=== PATIENT | male | born 1945 | race Hispanic/Latino ===

== ENCOUNTER 2021-08-23 11:32 | Inpatient (IN) | payer MEDICARE, OTHER ==
[~2021-08-23] VITALS: Ht 167.6 cm; Wt 65.9 kg
[2021-08-23 11:59] LABS: APPEARANCE,URINE TURBID (CLEAR); BILIRUBIN,URINE SMALL (NEGATIVE); COLOR,URINE AMBER (YELLOW); GLUCOSE, URINE (UA) NEGATIVE (NEGATIVE); KETONES,URINE 5 mg/dL (NEGATIVE); LEUKOCYTE ESTERASE ,URINE SMALL (NEGATIVE); NITRATE,URINE POSITIVE (NEGATIVE); OCCULT BLOOD,URINE LARGE (NEGATIVE); PH,URINE 5.5 (5.0-8.0); PROTEIN,URINE 100 mg/dL (NEGATIVE)
[2021-08-23 12:08] LABS: RBC,URINE TNTC /HPF (0-1)
[2021-08-23 12:09] LABS: BACTERIA,URINE Moderate /HPF (None Seen); SQUAMOUS EPITHELIAL CELL,UR Few /HPF (0-2)
[2021-08-23] MEDS ORDERED: 0.9%NACL 1000ML 1,137 ML IV ONE (12:30)
[2021-08-23 12:49] LABS: BASOPHILS % (AUTO) 0.4 % (0.0-5.0); EOSINOPHILS % (AUTO) 0.4 % (0.0-8.0); HEMATOCRIT 29.3 % (42-54); LYMPHOCYTES % (AUTO) 11.5 % (21.0-51.0); MEAN CORPUSCULAR HEMOGLOBIN 29.3 pg (27.0-33.0); MEAN CORPUSCULAR HGB CONC 33.4 g/dL (32.0-36.0); MEAN CORPUSCULAR VOLUME 87.5 fL (79-99); MONOCYTES % (AUTO) 7.2 % (3.0-13.0); NEUTROPHILS % (AUTO) 79.8 % (40.0-77.0); PLATELET COUNT (AUTO) 177 K/uL (130-400); RED BLOOD CELL COUNT(AUTO) 3.35 MIL/uL (4.50-6.20); RED CELL DISTRIBUTION WIDTH 14.1 % (11.0-15.5); WHITE BLOOD COUNT (AUTO) 22.5 K/uL (4.8-10.8)
[2021-08-23 12:58] LABS: CREATININE 0.9 mg/dL (0.5-1.5); POTASSIUM 3.9 mmol/L (3.5-5.1)
[2021-08-23] MEDS ORDERED: ZOSYN 3.375GM +NS 50ML IV SCH (13:00)
[2021-08-23] MEDS ORDERED: ZOSYN 3.375GM+NS 50ML 3.38 GM in 0.9%NACL 50ML 50 ML IV SCH ×2 (13:00→15:30)
[2021-08-23 13:09] LABS: ALBUMIN 2.8 g/dL (3.5-5.0); BILIRUBIN,TOTAL 0.5 mg/dL (0.2-1.0); TOTAL PROTEIN, SERUM 6.6 g/dL (6.0-8.3)
[2021-08-23] MEDS ORDERED: ACETAMINOPHEN 325 MG TAB PO PRN ×2 (14:00)
[2021-08-23] MEDS ORDERED: ONDANSETRON 4MG INJ IV PRN (14:00)
[2021-08-23] MEDS ORDERED: CEFTRIAXONE 1G VIAL IV SCH (14:00)
[2021-08-23] MEDS ORDERED: LACTULOSE 20 GM/30 ML UDCUP PO PRN (14:00)
[2021-08-23] MEDS ORDERED: NITROGLYCERIN 0.4 MG SL TAB SL PRN (14:00)
[2021-08-23 14:50] LABS: ABG OXYGEN SATURATION 96.1 % (95.0-99.0); ABG PCO2 37 mmHg (35-48)
[2021-08-23] MEDS: LACTATED RINGERS 1000ML 1,000 ML IV SCH (15:00)
[2021-08-23] MEDS ORDERED: 0.9%NACL 50ML 50 ML IV ONE (15:48)
[2021-08-23] MEDS: ZOSYN 3.375GM +NS 50ML IV SCH ×2 (17:11→21:29)
[2021-08-23] MEDS: FAMOTIDINE 20MG TAB PO SCH (20:59)
[2021-08-23] MEDS ORDERED: LORAZEPAM 2 MG/ML 1 ML VIAL IVP ONE (23:00)
[2021-08-23] MEDS ORDERED: LORAZEPAM 2 MG/ML 1 ML VIAL ONE (23:02)
[2021-08-24] MEDS ORDERED: DONE5TAB33 PO (00:14)
[2021-08-24] MEDS ORDERED: TAMS-1 PO (00:14)
[2021-08-24] MEDS ORDERED: ACET500C4 PO (00:14)
[2021-08-24] MEDS ORDERED: MEMA10TA55 PO (00:14)
[2021-08-24] MEDS ORDERED: SERT-439 PO (00:14)
[2021-08-24] MEDS ORDERED: QUET25TA36 PO (00:14)
[2021-08-24] MEDS ORDERED: ROSU5TAB12 PO (00:14)
[2021-08-24] MEDS ORDERED: LOSA50TA64 PO (00:14)
[2021-08-24] MEDS ORDERED: CARB1TAB20 PO (00:14)
[2021-08-24] MEDS: LACTATED RINGERS 1000ML 1,000 ML IV SCH ×3 (00:21→21:12)
[2021-08-24] MEDS: ZOSYN 3.375GM +NS 50ML IV SCH ×3 (05:51→21:12)
[2021-08-24] MEDS: FAMOTIDINE 20MG TAB PO SCH ×2 (08:45→21:00)
[2021-08-24 10:49] LABS: BASOPHILS % (AUTO) 0.6 % (0.0-5.0); EOSINOPHILS % (AUTO) 2.1 % (0.0-8.0); HEMATOCRIT 28.4 % (42-54); LYMPHOCYTES % (AUTO) 10.1 % (21.0-51.0); MEAN CORPUSCULAR HEMOGLOBIN 29.3 pg (27.0-33.0); MEAN CORPUSCULAR HGB CONC 33.5 g/dL (32.0-36.0); MEAN CORPUSCULAR VOLUME 87.7 fL (79-99); MONOCYTES % (AUTO) 7.8 % (3.0-13.0); NEUTROPHILS % (AUTO) 78.9 % (40.0-77.0); PLATELET COUNT (AUTO) 177 K/uL (130-400); RED BLOOD CELL COUNT(AUTO) 3.24 MIL/uL (4.50-6.20); WHITE BLOOD COUNT (AUTO) 15.5 K/uL (4.8-10.8)
[2021-08-24 10:58] LABS: CREATININE 0.7 mg/dL (0.5-1.5); POTASSIUM 3.6 mmol/L (3.5-5.1)
[2021-08-24 11:02] LABS: ALBUMIN 2.7 g/dL (3.5-5.0); BILIRUBIN,TOTAL 0.5 mg/dL (0.2-1.0); TOTAL PROTEIN, SERUM 6.6 g/dL (6.0-8.3)
[2021-08-24] MEDS ORDERED: 0.9%NACL 50ML 50 ML IV ONE (12:37)
[2021-08-24] MEDS ORDERED: LACTULOSE 20 GM/30 ML UDCUP PR SCH (16:30)
[2021-08-24] MEDS ORDERED: LORAZEPAM 2 MG/ML 1 ML VIAL ONE (17:48)
[2021-08-24] MEDS ORDERED: LORAZEPAM 2 MG/ML 1 ML VIAL IVP PRN (19:00)
[2021-08-24] MEDS: LUBIPROSTONE 24 MCG CAP PO SCH (21:50)
[2021-08-25] MEDS: ZOSYN 3.375GM +NS 50ML IV SCH ×3 (05:50→19:23)
[2021-08-25] MEDS: LACTATED RINGERS 1000ML 1,000 ML IV SCH ×2 (06:09→16:00)
[2021-08-25 07:09] LABS: HEMATOCRIT 30.4 % (42-54); MEAN CORPUSCULAR HEMOGLOBIN 28.7 pg (27.0-33.0); MEAN CORPUSCULAR VOLUME 87.1 fL (79-99); RED BLOOD CELL COUNT(AUTO) 3.49 MIL/uL (4.50-6.20); WHITE BLOOD COUNT (AUTO) 12.1 K/uL (4.8-10.8)
[2021-08-25 07:10] LABS: BASOPHILS % (AUTO) 0.6 % (0.0-5.0); EOSINOPHILS % (AUTO) 4.4 % (0.0-8.0); LYMPHOCYTES % (AUTO) 15.7 % (21.0-51.0); MEAN CORPUSCULAR HGB CONC 32.9 g/dL (32.0-36.0); MONOCYTES % (AUTO) 8.5 % (3.0-13.0); NEUTROPHILS % (AUTO) 70.5 % (40.0-77.0); PLATELET COUNT (AUTO) 198 K/uL (130-400); RED CELL DISTRIBUTION WIDTH 13.9 % (11.0-15.5)
[2021-08-25 07:25] LABS: ALBUMIN 2.8 g/dL (3.5-5.0); BILIRUBIN,TOTAL 0.6 mg/dL (0.2-1.0); CREATININE 0.7 mg/dL (0.5-1.5); POTASSIUM 3.5 mmol/L (3.5-5.1); TOTAL PROTEIN, SERUM 6.9 g/dL (6.0-8.3)
[2021-08-25] MEDS: LUBIPROSTONE 24 MCG CAP PO SCH ×2 (08:00→18:14)
[2021-08-25] MEDS: FAMOTIDINE 20MG TAB PO SCH ×2 (10:33→19:25)
[2021-08-25 16:15] VITALS: BP 160/62
[2021-08-25 20:00] VITALS: BP 146/45
[2021-08-26] VITALS: BP 146/50
[2021-08-26 04:00] VITALS: BP 157/80
[2021-08-26] MEDS: ZOSYN 3.375GM +NS 50ML IV SCH ×2 (05:00→13:02)
[2021-08-26 05:06] LABS: BASOPHILS % (AUTO) 0.8 % (0.0-5.0); EOSINOPHILS % (AUTO) 4.7 % (0.0-8.0); HEMATOCRIT 31.9 % (42-54); LYMPHOCYTES % (AUTO) 17.4 % (21.0-51.0); MEAN CORPUSCULAR HGB CONC 32.3 g/dL (32.0-36.0); MEAN CORPUSCULAR VOLUME 86.7 fL (79-99); MONOCYTES % (AUTO) 9.1 % (3.0-13.0); NEUTROPHILS % (AUTO) 67.6 % (40.0-77.0); PLATELET COUNT (AUTO) 236 K/uL (130-400); RED BLOOD CELL COUNT(AUTO) 3.68 MIL/uL (4.50-6.20); RED CELL DISTRIBUTION WIDTH 13.6 % (11.0-15.5); WHITE BLOOD COUNT (AUTO) 9.7 K/uL (4.8-10.8)
[2021-08-26 05:25] LABS: ALBUMIN 2.8 g/dL (3.5-5.0); BILIRUBIN,TOTAL 0.6 mg/dL (0.2-1.0); CREATININE 0.7 mg/dL (0.5-1.5); POTASSIUM 3.4 mmol/L (3.5-5.1); TOTAL PROTEIN, SERUM 7.2 g/dL (6.0-8.3)
[2021-08-26] MEDS: LUBIPROSTONE 24 MCG CAP PO SCH (08:00)
[2021-08-26 08:02] VITALS: BP 156/77
[2021-08-26] MEDS ORDERED: TAMSULOSIN HCL 0.4 MG CAP.ER.24H PO SCH (09:00)
[2021-08-26] MEDS: FAMOTIDINE 20MG TAB PO SCH (09:00)
[2021-08-26 11:50] VITALS: BP 160/71
[2021-08-26 16:29] VITALS: BP 185/74
== END 2021-08-26 19:00 | disposition hospice, home (50) | DRG 698 ==
LOC: EDH 11:32 → EDHIP 13:49 → 3BH 08-25 14:02 → UNDODISIN 08-26 19:00
PROVIDERS: ADMIT Internal Medicine; ATTEND Internal Medicine
DX: T83.518A Infection and inflammatory reaction due to other urinary catheter, initial encounter (principal); A41.9 Sepsis, unspecified organism; G92.9 Unspecified toxic encephalopathy; J69.0 Pneumonitis due to inhalation of food and vomit; N39.0 Urinary tract infection, site not specified; T83.83XA Hemorrhage due to genitourinary prosthetic devices, implants and grafts, initial encounter; Z20.822 Contact with and (suspected) exposure to COVID-19; Z66 Do not resuscitate; I10 Essential (primary) hypertension; G30.9 Alzheimer's disease, unspecified; K56.41 Fecal impaction; F41.9 Anxiety disorder, unspecified; R13.12 Dysphagia, oropharyngeal phase; F02.80 Dementia in other diseases classified elsewhere, unspecified severity, without behavioral disturbance, psychotic disturbance, mood disturbance, and anxiety; R31.0 Gross hematuria; E78.5 Hyperlipidemia, unspecified; N40.0 Benign prostatic hyperplasia without lower urinary tract symptoms; Y84.6 Urinary catheterization as the cause of abnormal reaction of the patient, or of later complication, without mention of misadventure at the time of the procedure; Y92.89 Other specified places as the place of occurrence of the external cause; Z51.5 Encounter for palliative care; Z74.01 Bed confinement status
CPT/HCPCS: 36415; 36600; 71045; 74176; 76770; 80053; 81001; 82803; 82948; 83605; 84145; 84484; 85025; 85378; 85651; 86140; 87040; 87088; 87635; 87804; 87880; 92610; 93005; C9803; G0378; J0696; J2060; J2543; J7120